=== PATIENT | female | born 1980 | race Two or more races ===

== ENCOUNTER 2017-08-24 14:24 | Emergency (ER) | payer OTHER ==
--- NOTE | 2017-08-24 14:32 | PDOC ---
Rapid Medical Evaluation Time Seen by Provider: 08/24/17 14:26 Medical Evaluation: Allergies Allergy/AdvReac Type Severity Reaction Status Date / Time codeine Allergy Verified 10/31/13 21:08 08/24/17 14:27 I have performed a brief in-person evaluation of this patient. This patient presents with a chief complaint of lower abdominal and lower back pain with spotting. States cramping started last night but pain worse today. , LMP unsure of date in july. Pertinent physical exam findings: Nad lungs clear bilaterally heart s1s2 tenderness in generalize abdomen I have ordered the following: cbc, bhcg, urine The patient will proceed to the ED for further evaluation.
[2017-08-24 14:33] VITALS: BMI 26.5
[2017-08-24 15:15] LABS: BASO % 1.1 % (0-2.0); EOS % 4.1 % (0-4.5); HEMATOCRIT 45.8 % (32.4-45.2); LYMPH % 37.6 % (8-40); MCH 30.3 pg (25.7-33.7); MCHC 34.9 g/dl (32.0-36.0); MEAN PLT VOLUME 7.7 fl (7.5-11.1); MONO % 7.9 % (3.8-10.2); NEUT % 49.3 % (42.8-82.8); PLATELET COUNT 260 K/MM3 (134-434); RBC 5.27 M/mm3 (3.60-5.2); WHITE BLOOD COUNT 6.4 K/mm3 (4.0-10.0)
--- NOTE | 2017-08-24 15:40 | PDOC ---
History of Present Illness - General Chief Complaint: Pain, Acute Stated Complaint: ABD PAIN, (8 WKS ) Time Seen by Provider: 08/24/17 14:26 History Source: Patient - History of Present Illness Timing/Duration: reports: other (last night) Quality: reports: severe Abdominal Pain Onset Location: reports: suprapubic Past History - Past Medical History Allergies/Adverse Reactions: Allergies Allergy/AdvReac Type Severity Reaction Status Date / Time codeine Allergy Verified 08/24/17 14:28 Home Medications: Ambulatory Orders NK [No Known Home Medication] 08/24/17 COPD: No Other medical history: denies. - Reproductive History (#): 3 Para: 3 - Suicide/Smoking/Psychosocial Hx Smoking History: Never smoked Have you smoked in the past 12 months: No Hx Alcohol Use: No Substance Use Type: None Review of Systems - Review of Systems Constitutional: No: Chills, Fever ABD/GI: Yes: Abdominal cramping. No: Nausea, Vomiting : No: Dysuria, Discharge, Flank Pain *Physical Exam - Vital Signs Last Vital Signs Temp Pulse Resp BP Pulse Ox 98 F 93 H 19 134/87 100 08/24/17 14:28 08/24/17 14:28 08/24/17 14:28 08/24/17 14:28 08/24/17 14:28 - Physical Exam General Appearance: Yes: Appropriately Dressed, Mild Distress Respiratory/Chest: negative: Respiratory Distress Gastrointestinal/Abdominal: positive: Tender (sig ttp to mid and R suprapubic, NT over mcburney, no cvat), Soft Musculoskeletal: negative: CVA Tenderness Integumentary: positive: Dry, Warm Neurologic: positive: Fully Oriented, Alert, Normal Mood/Affect ED Treatment Course - LABORATORY CBC & Chemistry Diagram: 08/24/17 15:07 - ADDITIONAL ORDERS Additional order review: Laboratory Results 08/24/17 15:07 Urine HCG, Qual Positive 08/24/17 15:07 RBC 5.27 H MCV 87.0 MCHC 34.9 RDW 13.0 MPV 7.7 Neutrophils % 49.3 Lymphocytes % 37.6 Monocytes % 7.9 Eosinophils % 4.1 Basophils % 1.1 - RADIOLOGY Radiology Studies Ordered: Category Date Time Status TRANSVAGINAL US PREG [US] Stat Ultrasound 08/24/17 15:14 Ordered Medical Decision Making - Medical Decision Making 08/24/17 15:30 37-year-old female, , ~5-6 weeks by dates, performed home test 3 days ago after developing bilateral breast soreness. As per patient, test was positive. Now presents with severe mid lower abdominal pain since last night. Noticed a small amount of blood on tissue after urinating this am. Otherwise no vaginal bleed, dysuria, nausea, vomiting, fever or chills. Has not yet had care See exam 1st trimester w/ abd pain and possible vag bleed R/o ectopic vs threatened AB vs abd pain of nl -pain control -beta -ua -T&S -US 08/24/17 18:29 US read as ? gestational sac a/w IUP vs pseudo sac of ectopic at ~5 weeks. Close follow-up recommended. Beta > 3K. UA with no signs of infection. Patient states she does not want to wait for T&S as she needs to go home to take care of her grandmother. Will contact ED later on today for results and states she will come in for rhogam if she has to. Patient instructed to follow- up with her ENOLOGIST in 2 days for repeat ultrasound and beta hCG to rule out ectopic . Aware that if she is not able to see her ENOLOGIST in 2 days, that she should come back to the ER for reassessment. Reasons to return sooner discussed with patient *DC/Admit/Observation/Transfer Diagnosis at time of Disposition: Abdominal pain affecting - Discharge Dispostion Disposition: HOME Condition at time of disposition: Improved - Referrals Referrals: Drerick Kruse MD [Staff Physician] - - Patient Instructions Additional Instructions: Coughlin ultrasonido muestra que puede tener un embarazo muy temprano alrededor de las 5 semanas, 2 javed, sin embargo, dado los primeros hallazgos, tendr que moody a coughlin gineclogo o regresar a la jolie de emergencias en 2 javed para descartar un embarazo ectpico, que es un embarazo fuera del tero. Es muy importante que lo sigas. El nivel de la hormona en tu olinda era [id number]. Se fue antes de que apareciera coughlin tipo y la pantalla, por favor llame a ED en aproximadamente alonso hora al [phone]. Regrese a ED ms pronto si los sntomas empeoran. Puede favian Tylenol segn sea necesario para el dolor - Post Discharge Activity
[2017-08-24 17:03] LABS: URINE APPEARANCE CLEAR; URINE BILIRUBIN NEGATIVE (NEGATIVE); URINE BLOOD NEGATIVE (NEGATIVE); URINE COLOR STRAW; URINE GLUCOSE (UA) NEGATIVE (NEGATIVE); URINE KETONE NEGATIVE (NEGATIVE); URINE NITRITE NEGATIVE (NEGATIVE); URINE PROTEIN NEGATIVE (NEGATIVE); URINE UROBILINOGEN NEGATIVE mg/dL (0.2-1.0)
[2017-08-24 17:13] LABS: URINE LEUK ESTERASE 1+ (NEGATIVE)
[2017-08-24 17:14] LABS: EPI CELLS RARE /HPF (FEW); URINE MUCUS RARE
[2017-08-24 18:58] VITALS: BP 118/79; PULSE 79; TEMP 98.2
== END 2017-08-24 18:58 | disposition home or self-care (01) ==
LOC: JER 14:24
DX: O26.891 Other specified pregnancy related conditions, first trimester (principal); R10.30 Lower abdominal pain, unspecified; Z3A.01 Less than 8 weeks gestation of pregnancy
CPT/HCPCS: 36415; 76817-TC; 81003; 81015; 84702; 84703; 85025; 86850; 86900; 86901; 99284-25

== ENCOUNTER 2018-06-25 19:44 | Emergency (ER) | payer OTHER ==
[2018-06-25 19:49] VITALS: BP 125/80; PULSE 82; TEMP 98.2; BMI 30.1
[2018-06-25] MEDS ORDERED: ALBUTEROL SO4 2.5/IPRATROPIUM 0.5 INH SOL 3 ML VIAL.NEB. NEB ONE (20:12)
--- NOTE | 2018-06-25 20:19 | PDOC ---
History of Present Illness - General Chief Complaint: Cold Symptoms Stated Complaint: Shortness of Breath Time Seen by Provider: 06/25/18 19:57 History Source: Patient Exam Limitations: No Limitations - History of Present Illness Initial Comments: 06/25/18 20:13 HISTORY OF PRESENT ILLNESS: 37-year-old woman denies medical history presents emergency department for evaluation of dry cough, sore throat, nasal congestion and rhinorrhea for the past 2 weeks. Patient reports taking DayQuil and other [id number] remedies with minimal relief of symptoms. Patient has also added ampicillin from her local convenience store which has not helped with her symptoms. No recent travel or sick contacts. PAST MEDICAL HISTORY: Denies past medical history SURGICAL HISTORY: Denies ALLERGIES: codeine REVIEW OF SYSTEMS General/Constitutional: Denies fever. Denies weakness, weight change. HEENT: Denies change in vision. Denies ear pain or discharge. +sore throat. Cardiovascular: Denies chest pain or shortness of breath. Respiratory: Dry productive cough. Denies wheezing, or hemoptysis. Gastrointestinal: Denies nausea, vomiting, diarrhea or constipation. Denies rectal bleeding. Genitourinary: Denies dysuria, frequency, or change in urination. Musculoskeletal: +myalgias. Denies neck or back pain. Skin and breasts: Denies rash or easy bruising. Neurologic: Denies headache, vertigo, loss of consciousness, or loss of sensation. Psychiatric: Denies depression or anxiety. Endocrine: Denies increased thirst. Denies abnormal weight change. Hematologic/Lymphatic: Denies anemia, easy bleeding, or history of blood clots. Allergic/Immunologic: Denies hives or skin allergy. Denies latex allergy. PHYSICAL EXAM General Appearance: Well-appearing, appropriately dressed. No apparent distress , no intoxication. HEENT: EOMI, PERRLA, normal voice, TMs retracted bilaterally. No conjunctival pallor. No photophobia, scleral icterus. Oropharynx mildly erythematous without lesions or exudate. Cobblestoning noted in the posterior. Clear nasal discharge present. Neck: Supple. Trachea midline. No tenderness, rigidity, carotid bruit, stridor , or thyromegaly. Nontender anterior cervical lymphadenopathy present. Respiratory/Chest: Lungs CTAB. No shortness of breath, chest tenderness, respiratory distress, accessory muscle use. No crackles, rales, rhonchi, stridor , wheezing, dullness Cardiovascular: RRR. S1, S2. No JVD, murmur, bradycardia, tachycardia. Vascular Pulses: Dorsalis-Pedis (R): 2+, Dorsalis-Pedis (L): 2+ Gastrointestinal/Abdominal: Normal bowel sounds. Abdomen soft, non-distended. No tenderness or rebound tenderness. No organomegaly, pulsatile mass, guarding, hernia, hepatomegaly, splenomegaly. Musculoskeletal/Extremities: Normal inspection. FROM of all extremities, normal capillary refill. Pelvis Stable. No CVA tenderness. No tenderness to extremities, pedal edema, swelling, erythema or deformity. Integumentary: Appropriate color, dry, warm. 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 Fully oriented, alert. Appropriate mood/affect. Motor strength 5/5. No appreciable EOM palsy, facial droop or sensory deficit. Past History - Past Medical History Allergies/Adverse Reactions: Allergies Allergy/AdvReac Type Severity Reaction Status Date / Time codeine Allergy Verified 06/25/18 19:50 Home Medications: Ambulatory Orders Ipratropium [place] 15 ml NS BID #1 bottle 06/25/18 COPD: No - Reproductive History (#): 3 Para: 3 - Suicide/Smoking/Psychosocial Hx Smoking History: Never smoked Have you smoked in the past 12 months: No Hx Alcohol Use: No Substance Use Type: None *Physical Exam - Vital Signs Last Vital Signs Temp Pulse Resp BP Pulse Ox 98.2 F 82 18 125/80 98 06/25/18 19:47 06/25/18 19:47 06/25/18 19:47 06/25/18 19:47 06/25/18 19:47 Moderate Sedation - Procedure Monitoring Vital Signs: Procedure Monitoring Vital Signs Temperature 98.2 F 06/25/18 19:47 Pulse Rate 82 06/25/18 19:47 Respiratory Rate 18 06/25/18 19:47 Blood Pressure 125/80 06/25/18 19:47 O2 Sat by Pulse Oximetry (%) 98 06/25/18 19:47 Medical Decision Making - Medical Decision Making 06/25/18 20:22 A/P: 37-year-old woman with 2 weeks of upper respiratory viral illness DuoNeb here Discharge home with prescription for Atrovent nasal spray for nasal congestion. Supportive treatment discussed with patient was verbalizes understanding of discharge instructions *DC/Admit/Observation/Transfer Diagnosis at time of Disposition: URI (upper respiratory infection) Qualifiers: URI type: acute nasopharyngitis (common cold) Qualified Code(s): J00 - Acute nasopharyngitis [common cold] - Discharge Dispostion Disposition: HOME Condition at time of disposition: Stable Decision to Admit order: No - Prescriptions Prescriptions: Ipratropium [place] 15 ml NS BID #1 bottle - Referrals - Patient Instructions Printed Discharge Instructions: DI for Viral Upper Respiratory Infection -- Adult Additional Instructions: Rest, drink lots of fluids: Teas, water, soups, Pedialyte Saltwater gargles Steamy showers/seem to face break up mucus Avoid contact with others until fevers and cough resolved Lots of handwashing and good hygiene Continue afop-spl-oznvicw medications for symptomatic relief Tylenol or Motrin for fever and pain Followup with private physician in one to 2 days as needed Return to emergency department for worsened symptoms, fevers, dehydration El descanso, renetta muchos lquidos: ts, agua, sopas, Pedialyte grgaras de agua salada Duchas Steamy / parecen enfrentar aflojar la mucosidad Evite el contacto con otras personas hasta que la fiebre y la tos resueltos Un montn de lavado de terrell y la higiene Continuar szev-vgp-setssao medicamentos para el alivio sintomtico Tylenol o Motrin para la fiebre y el dolor Followup con el mdico privado en [place] o 2 javed segn sea necesario Regresar a urgencias por sntomas empeoraron, fiebres, deshidratacin Print Language: ROMANSH - Post Discharge Activity
== END 2018-06-25 20:32 | disposition home or self-care (01) ==
LOC: JERFT 19:44
PROC: 3E0F7GC Introduction of Other Therapeutic Substance into Respiratory Tract, Via Natural or Artificial Opening (ICD-10-PCS; principal; 2018-06-25)
DX: J06.9 Acute upper respiratory infection, unspecified (principal); J00 Acute nasopharyngitis [common cold]
CPT/HCPCS: 94640; 99281-25

== ENCOUNTER 2022-03-27 13:38 | Emergency (ER) | payer OTHER ==
[2022-03-27 14:32] VITALS: BP 121/69; PULSE 85; RESP 18; TEMP 98.2; BMI 24.6
[2022-03-27 15:54] LABS: EOS % 4.1 % (0-4.5); HEMOGLOBIN 13.8 GM/dL (10.7-15.3); LYMPH % 36.6 % (8-40); MCH 29.2 pg (25.7-33.7); MCHC 33.6 g/dl (32.0-36.0); MEAN CELL VOLUME 86.7 fl (80-96); MEAN PLT VOLUME 7.5 fl (7.5-11.1); MONO % 11.4 % (3.8-10.2); NEUT % 46.9 % (42.8-82.8); PH,URINE 7.5 (5.0-8.0); PLATELET COUNT 236 10^3/uL (134-434); RBC 4.73 M/mm3 (3.60-5.2); RDW 13.5 % (11.6-15.6); URINE APPEARANCE CLEAR; URINE BILIRUBIN NEGATIVE (NEGATIVE); URINE COLOR YELLOW; URINE GLUCOSE (UA) NEGATIVE (NEGATIVE); URINE KETONE NEGATIVE (NEGATIVE); URINE LEUK ESTERASE NEGATIVE (NEGATIVE); URINE NITRITE NEGATIVE (NEGATIVE); URINE PROTEIN NEGATIVE (NEGATIVE); URINE UROBILINOGEN 0.2 mg/dL (0.2-1.0); WHITE BLOOD COUNT 6.5 K/mm3 (4.0-10.0)
[2022-03-27 15:56] LABS: HCG,QUALITATIVE URINE Positive
[2022-03-27 16:00] LABS: CALCIUM 9.3 mg/dL (8.5-10.1)
[2022-03-27 16:02] LABS: ALBUMIN 3.8 g/dl (3.4-5.0); BLOOD UREA NITROGEN 8.3 mg/dL (7-18)
[2022-03-27 16:04] LABS: CREATININE 0.5 mg/dL (0.55-1.3)
[2022-03-27 16:05] LABS: BILIRUBIN,TOTAL 0.4 mg/dL (0.2-1); TOT PROT 7.3 g/dl (6.4-8.2)
== END 2022-03-27 19:04 | disposition home or self-care (01) ==
LOC: JER 13:38
DX: O26.891 Other specified pregnancy related conditions, first trimester (principal); R10.32 Left lower quadrant pain; Z3A.01 Less than 8 weeks gestation of pregnancy
CPT/HCPCS: 36415; 76817-TC; 80053; 81003; 84702; 84703; 85025; 87086; 99284-25

== ENCOUNTER 2022-04-26 15:19 | Emergency (ER) | payer OTHER ==
[2022-04-26 15:28] VITALS: BP 117/65; PULSE 96; RESP 18; TEMP 97.9; BMI 24.7
== END 2022-04-26 17:31 | disposition home or self-care (01) ==
LOC: JER 15:19
DX: J31.0 Chronic rhinitis (principal); J09.X2 Influenza due to identified novel influenza A virus with other respiratory manifestations
CPT/HCPCS: 0241U-QW; 99283-25

== ENCOUNTER 2022-10-24 00:21 | Emergency (ER) | payer OTHER ==
[2022-10-24 00:26] VITALS: BP 114/76; PULSE 104; RESP 18; TEMP 97.3; BMI 26.5
== END 2022-10-24 00:33 | disposition left against medical advice (07) ==
LOC: JER 00:21
DX: O26.893 Other specified pregnancy related conditions, third trimester (principal); R51.9 Headache, unspecified; Z3A.00 Weeks of gestation of pregnancy not specified
CPT/HCPCS: 99281-25

== ENCOUNTER 2022-11-18 13:50 | Inpatient (IN) | payer OTHER ==
[2022-11-18] MEDS ORDERED: DINOPROSTONE 10 MG VAGINAL SUPPOSITORY VG ONE (14:40)
[2022-11-18] MEDS: ELECTROLYTE-148 SOLN 1,000 ML IV SCH (15:15)
[2022-11-18 15:20] LABS: INR 1.09 (0.83-1.09); PROTHROMBIN TIME (PATIENT) 12.6 SEC (9.7-13.0)
[2022-11-18 15:45] VITALS: BMI 30.8
[2022-11-18] MEDS ORDERED: FAMOTIDINE 20 MG/50 ML IVPB 20 MG/50 ML MG IVPB ONE (15:46)
[2022-11-18] MEDS: FAMOTIDINE 20 MG/50 ML IVPB 20 MG/50 ML MG IVPB SCH (15:50)
[2022-11-19] MEDS ORDERED: FAMOTIDINE 20 MG/50 ML IVPB 20 MG/50 ML MG IVPB ONE ×3 (00:25→22:20)
[2022-11-19] MEDS: ELECTROLYTE-148 SOLN 1,000 ML IV SCH ×3 (00:30→19:05)
[2022-11-19] MEDS: FAMOTIDINE 20 MG/50 ML IVPB 20 MG/50 ML MG IVPB SCH ×3 (00:30→22:24)
[2022-11-19] MEDS ORDERED: PROMETHAZINE HCL 25 MG/1 ML VIAL IVPB ONE (06:00)
[2022-11-19] MEDS ORDERED: DINOPROSTONE 10 MG VAGINAL SUPPOSITORY VG ONE (06:00)
[2022-11-19] MEDS ORDERED: BUTORPHANOL TARTRATE 1 MG/ML VIAL ONE (06:28)
[2022-11-19] MEDS ORDERED: PROMETHAZINE HCL 25 MG/1 ML VIAL ONE (06:29)
[2022-11-19] MEDS ORDERED: BUTORPHANOL TARTRATE 1 MG/ML VIAL IVPB ONE (06:30)
[2022-11-19] MEDS ORDERED: CITRIC ACID/SODIUM CITRATE 30 ML UNIT-DOSE CUP PO ONE (14:30)
[2022-11-19] MEDS ORDERED: OXYTOCIN 30 UNITS in 0.9% NS 30 UNIT/500 ML INFUS.BAG IVPB ONE (18:40)
[2022-11-19] MEDS ORDERED: FENTANYL CITRATE/PF 50 MCG/ML VIAL ONE (18:44)
[2022-11-19] MEDS ORDERED: DEXAMETHASONE SOD PHOSPHATE 4 MG/1 ML VIAL ONE (18:44)
[2022-11-19] MEDS ORDERED: ceFAZolin SODIUM 1 GM VIAL ONE (18:44)
[2022-11-19] MEDS ORDERED: KETOROLAC TROMETHAMINE 30 MG/1 ML VIAL ONE (18:44)
[2022-11-19] MEDS ORDERED: ONDANSETRON 4 MG/2 ML VIAL ONE (18:44)
[2022-11-19] MEDS ORDERED: morphine SULFATE/PF 1 MG/2 ML (2cc Syringe - QUVA) ONE (18:44)
[2022-11-19] MEDS ORDERED: ONDANSETRON 4 MG/2 ML VIAL IVPUSH PRN (18:58)
[2022-11-19] MEDS ORDERED: METHYLERGONOVINE MALEATE 0.2 MG/1 ML AMP IM PRN (20:02)
[2022-11-19] MEDS ORDERED: HYDROmorphone HCL 2 MG TABLET PO PRN (20:53)
[2022-11-19] MEDS ORDERED: ACETAMINOPHEN 1000 MG/100 ML BAG IVPB ONE (21:08)
[2022-11-19] MEDS ORDERED: OXYTOCIN 20 UNITS in 0.9% NS 20 UNIT/1,000 ML INFUS.BAG IV ONE (21:11)
[2022-11-19] MEDS: OXYTOCIN 20 UNITS in 0.9% NS 20 UNIT/1,000 ML INFUS.BAG IV SCH (21:43)
[2022-11-19] MEDS ORDERED: ACETAMINOPHEN INJECTION 100 ML IVPB ONE (21:44)
[2022-11-19 23:59] VITALS: RESP 18
[2022-11-20] MEDS: IBUPROFEN 800 MG/8 ML IJ IVPB PRN ×2 (01:30→12:19)
[2022-11-20] MEDS: OXYTOCIN 20 UNITS in 0.9% NS 20 UNIT/1,000 ML INFUS.BAG IV SCH (05:47)
[2022-11-20] MEDS: ACETAMINOPHEN 325 MG TABLET (FP) PO PRN ×2 (09:20→18:02)
[2022-11-20] MEDS: FAMOTIDINE 20 MG/50 ML IVPB 20 MG/50 ML MG IVPB SCH (09:21)
[2022-11-20 09:40] LABS: BASO % 0.3 % (0-2.0); EOS % 0.2 % (0-4.5); HEMATOCRIT 27.7 % (32.4-45.2); HEMOGLOBIN 8.8 GM/dL (10.7-15.3); LYMPH % 11.6 % (8-40); MCH 26.2 pg (25.7-33.7); MCHC 31.7 g/dl (32.0-36.0); MEAN CELL VOLUME 82.4 fl (80-96); MEAN PLT VOLUME 7.8 fl (7.5-11.1); MONO % 9.2 % (3.8-10.2); NEUT % 78.7 % (42.8-82.8); PLATELET COUNT 189 10^3/uL (134-434); RBC 3.36 M/mm3 (3.60-5.2); RDW 16.8 % (11.6-15.6); WHITE BLOOD COUNT 13.7 K/mm3 (4.0-10.0)
[2022-11-20] MEDS: SIMETHICONE 80 MG TAB.CHEW (FP) PO PRN (18:02)
[2022-11-20] MEDS ORDERED: BISACODYL 10 MG SUPP.RECT RC PRN (20:02)
[2022-11-20] MEDS: FAMOTIDINE 20 MG TABLET PO SCH (21:35)
[2022-11-20] MEDS: IBUPROFEN 600 MG TABLET (FP) PO PRN (22:52)
[2022-11-21] MEDS: IBUPROFEN 600 MG TABLET (FP) PO PRN ×4 (02:46→19:48)
[2022-11-21] MEDS: SIMETHICONE 80 MG TAB.CHEW (FP) PO PRN ×3 (02:46→19:48)
[2022-11-21] MEDS: ACETAMINOPHEN 325 MG TABLET (FP) PO PRN (06:07)
[2022-11-21 08:06] LABS: HEMATOCRIT 24.2 % (32.4-45.2); MCHC 33.2 g/dl (32.0-36.0); MEAN CELL VOLUME 81.5 fl (80-96); MEAN PLT VOLUME 7.7 fl (7.5-11.1); PLATELET COUNT 196 10^3/uL (134-434); RBC 2.97 M/mm3 (3.60-5.2); RDW 16.5 % (11.6-15.6); WHITE BLOOD COUNT 9.4 K/mm3 (4.0-10.0)
[2022-11-21] MEDS: FAMOTIDINE 20 MG TABLET PO SCH ×2 (09:09→21:50)
[2022-11-21 22:27] VITALS: PULSE 100
[2022-11-22] MEDS: IBUPROFEN 600 MG TABLET (FP) PO PRN ×3 (02:07→11:25)
[2022-11-22] MEDS: SIMETHICONE 80 MG TAB.CHEW (FP) PO PRN ×3 (02:07→11:25)
[2022-11-22 07:15] LABS: BASO % 0.8 % (0-2.0); EOS % 5.1 % (0-4.5); HEMATOCRIT 24.9 % (32.4-45.2); HEMOGLOBIN 8.4 GM/dL (10.7-15.3); LYMPH % 24.8 % (8-40); MCH 26.9 pg (25.7-33.7); MCHC 33.6 g/dl (32.0-36.0); MEAN CELL VOLUME 80.1 fl (80-96); MEAN PLT VOLUME 7.2 fl (7.5-11.1); MONO % 9.7 % (3.8-10.2); NEUT % 59.6 % (42.8-82.8); PLATELET COUNT 218 10^3/uL (134-434); RBC 3.11 M/mm3 (3.60-5.2); WHITE BLOOD COUNT 7.7 K/mm3 (4.0-10.0)
[2022-11-22 09:23] VITALS: BP 123/70; TEMP 99
[2022-11-22] MEDS: FAMOTIDINE 20 MG TABLET PO SCH (09:45)
== END 2022-11-22 13:05 | disposition home or self-care (01) | DRG 540 ==
LOC: JLDR 13:50 → J3W 11-19 22:40
PROVIDERS: ADMIT Obstetrics & Gynecology; ATTEND Obstetrics & Gynecology
PROC: 10D00Z1 Extraction of Products of Conception, Low, Open Approach (ICD-10-PCS; principal; 2022-11-19)
DX: O32.1XX0 Maternal care for breech presentation, not applicable or unspecified (principal); O61.0 Failed medical induction of labor; Z3A.39 39 weeks gestation of pregnancy; Z37.0 Single live birth
CPT/HCPCS: 36415; 85025; 85027; 85610; 86780; 88307-TC